=== PATIENT | female | born 1965 | race Caucasian/White ===

== ENCOUNTER 2018-10-12 14:16 | Emergency (ER) | payer MEDICAID ==
[2018-10-12] MEDS ORDERED: fentaNYL 100 MCG/2 ML INJ ONE (14:22)
[2018-10-12] MEDS ORDERED: fentaNYL 100 MCG/2 ML INJ IVP ONE (14:22)
[2018-10-12] MEDS ORDERED: KETAMINE 200 MG/20 ML VIAL ONE (14:25)
[2018-10-12] MEDS ORDERED: KETAMINE 500 MG/10 ML VIAL IVP ONE (14:29)
[2018-10-12] MEDS ORDERED: PROPOFOL 200 MG/20 ML VIAL ONE (14:32)
[2018-10-12] MEDS ORDERED: PROPOFOL 200 MG/20 ML VIAL IVP ONE (14:35)
--- NOTE | 2018-10-12 14:42 | EDPHY ---
H & P Stated Complaint: right shoulder dislocation. 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 The patient fell while skiing. She did not strike her head or lose consciousness. She received 20 mg of morphine and 2 mg of Versed EN route. She continues to complain of 10/10 pain. She does report some numbness in the tips of her fingers. The patient denies any anticoagulant use. She denies any abdominal pain, chest pain, extremity complaints or other traumatic injuries. REVIEW OF SYSTEMS: A comprehensive 10 point review of systems is otherwise negative aside from elements mentioned in the history of present illness. Source: Patient, EMS - Medical/Surgical History PMH: Past medical history: Noncontributory - Family History Significant Family History: No pertinent family hx - Physical Exam Exam: General Appearance: Alert, moderate discomfort secondary to pain, crying Head: Atraumatic Eyes: Pupils equal, round, reactive ENT, Mouth: No hemotympanum, no oral trauma Neck: Nontender, trachea midline Respiratory: No chest wall tender, subcutaneous air, lungs clear bilaterally Cardiovascular: Regular rate and rhythm Abdomen: Abdomen is soft and nontender, pelvis stable Skin: No lacerations, No abrasion Back: No midline T/L/S pain Extremities: Obvious glenohumeral dislocation involving the right shoulder joint Neurological: A&Ox3, normal motor function, normal sensory exam Constitutional: Initial Vital Signs Heart Rate 81 10/12/18 14:23 Respiratory Rate 26 H 10/12/18 14:23 Blood Pressure 142/97 H 10/12/18 14:23 O2 Sat (%) 99 10/12/18 14:23 O2 Delivery Mode [Post Non-Rebreather Mask Procedure 2nd] O2 Delivery Mode [Post Non-Rebreather Mask Procedure 1st] O2 Delivery Mode [Procedural Non-Rebreather Mask 1st] O2 Delivery Mode Nasal Cannula O2 (L/minute) [Post Procedure 15 2nd] O2 (L/minute) [Post Procedure 15 1st] O2 (L/minute) [Procedural 1st] 15 O2 (L/minute) 4 Allergies/Adverse Reactions: No Known Allergies Allergy (Unverified 10/12/18 14:21) Home Medications: Medication Instructions Recorded Cymbalta 10/12/18 Hydrocodone/APAP 5/325 [[place] 1 - 2 each PO Q6 PRN #20 tab 10/12/18 5/325] Medical Decision Making - Diagnostics Imaging Results: Imaging Impressions Shoulder X-Ray 10/12/18 14:38 Impression: 1. Normally located humeral head 2. Lateral humeral head fracture. Procedures: Procedure: Conscious sedation. Indication: Shoulder dislocation The patient is an appropriate candidate to tolerate procedural sedation. The patient's vital signs and mental status are appropriate. The risks, benefits and alternatives of the sedation were discussed with the patient. The patient is ASA classification 2. The patient's Mallampati airway score was 2 and the patient did meet the 3-3-2 airway measurements. A time out was completed. The patient was sedated with propofol, fentanyl and ketamine. The patient was monitored with continuous pulse oximetry, high school library media specialist and end tidal CO2. There were no complications and no significant hypoxemia. I performed both the sedation and the procedure. The total time I spent at the bedside during the procedural sedation was 18 minutes. The patient was examined after the procedural sedation and has returned to their pre-sedation baseline with normal vital signs and a normal examination. Procedure: Dislocation reduction. Indication: Dislocation The shoulder was reduced in the usual fashion without complications. Post reduction the patient's neurovascular exam is normal. Post reduction x-ray demonstrates reduction of the joint to the anatomic position. The procedure was performed by myself. ED Course/Re-evaluation: The patient received 100 mcg of fentanyl, 20 mg of ketamine and 60 mg of propofol for sedation. The patient's shoulder was reduced using gentle traction without complication. The patient tolerated the procedure well. Post reduction x-rays do demonstrate an avulsion type fracture involving the greater tuberosity however a relocated glenohumeral joint. The patient will be placed in a sling. She is discharged home with a prescription for pain medications. She should follow up with Orthopedic surgery for a recheck in the next 2-3 days. Differential Diagnosis: Differential diagnosis considered includes fracture, sprain, dislocation - Data Points Medications Given: Discontinued Medications Fentanyl (Sublimaze) 100 mcg IVP EDNOW ONE Stop: 10/12/18 14:23 Last Admin: 10/12/18 14:25 Dose: 100 mcg Ketamine HCl (Ketamine) 20 mg IVP EDNOW ONE Stop: 10/12/18 14:30 Last Admin: 10/12/18 14:30 Dose: 20 mg Ondansetron HCl (Zofran) 4 mg IVP EDNOW ONE Stop: 10/12/18 15:02 Last Admin: 10/12/18 15:02 Dose: 4 mg Propofol (Diprivan) 60 mg IVP EDNOW ONE Stop: 10/12/18 14:36 Last Admin: 10/12/18 14:35 Dose: 60 mg Departure - Departure Disposition: Home, Routine, Self-Care Clinical Impression: Shoulder dislocation Qualifiers: Encounter type: initial encounter Laterality: right Qualified Code(s): S43.004A - Unspecified dislocation of right shoulder joint, initial encounter Greater tuberosity of humerus fracture Qualifiers: Encounter type: initial encounter Fracture type: closed Fracture alignment: nondisplaced Laterality: right Qualified Code(s): S42.254A - Nondisplaced fracture of greater tuberosity of right humerus, initial encounter for closed fracture Condition: Good Instructions: Scapular Fracture (ED) Additional Instructions: 1. Please wear splint until seen in follow-up by Orthopedic surgery. You have a dislocation which has been reduced by have a fracture involving the greater tuberosity of your humerus. 2. Please contact Dr. Bernal from Orthopedic surgery to schedule a follow-up visit in the next several days. 3. Take Ibuprofen or Motrin 600 mg by mouth three times a day. [place] as needed for severe pain. 4. Return to the emergency department for markedly worsening symptoms or other concerns. Referrals: Severiano Bernal MD [Medical Doctor] - As per Instructions
[2018-10-12] MEDS ORDERED: ONDANSETRON 4 MG/2 ML VIAL ONE (14:59)
[2018-10-12] MEDS ORDERED: ONDANSETRON 4 MG/2 ML VIAL IVP ONE (15:01)
[2018-10-12 16:35] VITALS: BP 119/70
== END 2018-10-12 16:35 | disposition home or self-care (01) ==
LOC: EDUNIT#
PROC: 0RSJXZZ Reposition Right Shoulder Joint, External Approach (ICD-10-PCS; principal; 2018-10-12)
DX: S42.251A Displaced fracture of greater tuberosity of right humerus, initial encounter for closed fracture (principal); V00.321A Fall from snow-skis, initial encounter; Y93.23 Activity, snow (alpine) (downhill) skiing, snowboarding, sledding, tobogganing and snow tubing
CPT/HCPCS: 96374; J2405; J2704; J3010